=== PATIENT | male | born 1980 | race African-American/Black ===

== ENCOUNTER 2019-04-07 23:07 | Emergency (ER) | payer OTHER, SELFPAY ==
[2019-04-07 23:18] VITALS: BP 120/77; PULSE 67; RESP 16; TEMP 36.7; O2SAT 100; BMI 23.6
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
[2019-04-08 00:25] VITALS: BP 102/70; PULSE 59; RESP 13; O2SAT 100
== END 2019-04-08 00:25 | disposition home or self-care (01) ==
PROVIDERS: Emergency Provider Emergency Medicine
DX: S16.1XXA Strain of muscle, fascia and tendon at neck level, initial encounter (principal); V49.50XA Passenger injured in collision with unspecified motor vehicles in traffic accident, initial encounter
CPT/HCPCS: 99282

== ENCOUNTER 2019-06-03 08:46 | Emergency (ER) | payer OTHER, SELFPAY ==
[2019-06-03 08:52] VITALS: BP 126/81; PULSE 67; RESP 16; TEMP 36.5; O2SAT 100; BMI 23.5
--- NOTE | 2019-06-03 08:52 | ED.GENADULT ---
HPI - General Adult General Chief complaint: Skin/Abscess/Foreign Body Stated complaint: Upper L thigh pain Time Seen by Provider: 06/03/19 08:51 Source: patient Mode of arrival: Ambulatory Limitations: no limitations History of Present Illness HPI narrative: 39-year-old male here for evaluation of left thigh pain. Patient states that he noticed his left thigh hurting several days ago. Worsening over the past 24 hours. He has had an abscess in the past he feels like this is what is going on again. Has not tried anything for symptoms prior to arrival. Related Data Previous Rx's Medication Instructions Recorded doxycycline hyclate 100 mg PO BID 5 Days #10 tab 06/03/19 Allergies Allergy/AdvReac Type Severity Reaction Status Date / Time No Known Drug Allergies Allergy Verified 06/03/19 08:52 Review of Systems Constitutional Constitutional: Denies fever(s) Cardiovascular Cardiovascular: Denies chest pain and Denies dyspnea Respiratory Respiratory: Denies dyspnea Musculoskeletal Musculoskeletal: Denies tingling Integumentary/Breasts Comments: Redness and a small lesion on his left thigh Neurologic Neurologic: Denies tingling Hematologic/Lymphatic Hematologic/Lymphatic: Denies easy bleeding and Denies easy bruising Patient History Medical History Healthy adult (Acute) Social History Smoking Status: Never smoker Substance Use Type: does not use Exam Initial Vital Signs Initial Vital Signs: Vital Signs Temperature 97.7 F 06/03/19 08:52 Pulse Rate 67 06/03/19 08:52 Respiratory Rate 16 06/03/19 08:52 Blood Pressure 126/81 06/03/19 08:52 Pulse Oximetry 100 06/03/19 08:52 Const General: cooperative, comfortable and well developed Resp Effort & Inspection: normal respiratory effort Cardio Rate: regular rate Skin Other: Patient with a 8 cm round area of erythema with a center area of ulceration on the left anterior thigh Neuro General: alert and awake Extrem General: normal to inspection and capillary refill normal Psych Appearance: grossly normal and well kempt Procedures Abscess I/D Site: lower extremity Side (if applicable): left Local Anesthetic: lidocaine 1% Amount of anesthesia used (mL): 4 Technique: incised with #11 blade Irrigation: No Packing used?: none Course Orders Ordered: Doxycycline Hyclate (Vibramycin) 100 mg PO NOW ONE Stop: 06/03/19 09:08 Discontinued Medications Lidocaine HCl (Xylocaine 1% (Pf)) 4 ml INJ NOW ONE Stop: 06/03/19 08:52 Last Admin: 06/03/19 09:02 Dose: 2 ml Documented by: SCANAPO Vital Signs Vital signs: Vital Signs - 8 hr 06/03/19 08:52 Temperature 97.7 F Pulse Rate 67 Respiratory Rate 16 Blood Pressure 126/81 Pulse Oximetry 100 Medical Decision Making MDM Narrative Medical decision making narrative: Bedside ultrasound showed a small abscess on the left anterior thigh. Does have some surrounding erythema. I and D was performed. A Q-tip was used to break up any loculations. Patient was given a dose of doxycycline here in the ER and will send home with a dose of doxycycline given the surrounding erythema. Patient was given care instructions return precautions. He expressed understanding and agreement with plan. Discharge Plan Departure Patient Disposition: Home Clinical Impression: Abscess Instructions: DI for Incision and Drainage of a Skin Abscess, DI for Skin Abscess Activity Restrictions/Additional Instructions: Expect some drainage from the area. Keep it covered with a bandage. You can shower like normal in use soap and water like normal. Take the antibiotics as directed. Return to the emergency department for any new or worsening symptoms Prescriptions: New doxycycline hyclate 100 mg tablet 100 mg PO BID 5 Days Qty: 10 RF: 0 Stand Alone Forms: Work Release Note
[2019-06-03] MEDS: LIDOCAINE 1% (PF) 4 ML INJ (09:02)
[2019-06-03] MEDS: DOXYCYCLINE HYCLATE 100 MG TABLET PO (09:11)
[2019-06-03] MEDS: IBUPROFEN 400 MG TABLET 800 MG PO (09:14)
--- NOTE | 2019-06-03 09:21 | PC.NURSE ---
Provider in to evaluate. Small left abcess on thigh. No surrounding redness.
== END 2019-06-03 09:26 | disposition home or self-care (01) ==
LOC: ED 09:23
PROVIDERS: Emergency Provider Emergency Medicine
DX: L02.416 Cutaneous abscess of left lower limb (principal)
CPT/HCPCS: 10060; 99282; 99283

== ENCOUNTER 2019-12-24 11:18 | Emergency (ER) | payer OTHER, SELFPAY ==
[2019-12-24 11:26] VITALS: BP 118/79; PULSE 60; RESP 12; TEMP 36.7; O2SAT 100
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
[2019-12-24 11:55] LABS: RBC Urine None Seen (0-5/HPF)
[2019-12-24 11:56] LABS: Appearance Urine UA CLEAR; Bilirubin Urine UA NEGATIVE (NEGATIVE); Color Urine UA YELLOW; Glucose Urine UA NEGATIVE (Negative); Ketones Urine UA NEGATIVE (NEGATIVE); Leukocyte Esterase Urine UA TRACE (NEGATIVE); Nitrite Urine UA NEGATIVE (Negative); Occult Blood Urine UA NEGATIVE (Negative); Protein Urine UA NEGATIVE (Negative); Urobilinogen Urine UA 0.2 E.U./dL (0.2)
[2019-12-24 12:10] LABS: Bacteria Urine Occasional (0-1); Culture Indicated Urine Specimen Cultured; WBC Urine 10-30/HPF (0-5/HPF)
[2019-12-24] MEDS: cefTRIAXone 500 MG VIAL 250 MG IM (12:12)
[2019-12-24] MEDS: AZITHROMYCIN 250 MG TABLET 1000 MG PO (12:12)
[2019-12-24 13:23] LABS: Urine N gonorrhoeae NOT DETECTED
[2019-12-24 13:25] LABS: Urine Chlamydia NOT DETECTED
== END 2019-12-24 12:18 | disposition home or self-care (01) ==
PROVIDERS: Emergency Provider Nurse Practitioner; PCP General Practice
DX: R36.9 Urethral discharge, unspecified (principal); Z20.2 Contact with and (suspected) exposure to infections with a predominantly sexual mode of transmission
CPT/HCPCS: 81001; 87086; 87491; 87591; 96372; 99283; J0696

== ENCOUNTER 2020-11-19 09:35 | Emergency (ER) | payer OTHER, SELFPAY ==
[2020-11-19 09:48] VITALS: BP 118/74; PULSE 60; RESP 16; TEMP 36.4; O2SAT 97; BMI 23.6
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
[2020-11-19] MEDS: KETOROLAC 60 MG/2 ML VIAL 30 MG IM (12:44)
[2020-11-19 13:16] VITALS: BP 119/76; PULSE 71; RESP 18; O2SAT 100
== END 2020-11-19 13:17 | disposition home or self-care (01) ==
PROVIDERS: Emergency Provider Emergency Medicine
DX: M54.5 Low back pain (principal); M54.2 Cervicalgia
CPT/HCPCS: 96372; 99283; J1885